=== PATIENT | female | born 1945 | race Caucasian/White ===

== ENCOUNTER 2021-10-13 12:02 | Emergency (ER) | payer MEDICARE, OTHER, SELFPAY ==
[2021-10-13] VITALS (87 sets, daily range): BP systolic 120–135; BP diastolic 56–88; PULSE 71–96; RESP 13–24; TEMP 36.1–36.6; O2SAT 95–99
--- NOTE | 2021-10-13 13:15 | DI.CT_ITS ---
Exam(s) CT ABDOMEN PELVIS W EXAM: CT ABDOMEN PELVIS W CLINICAL HISTORY: abd pain with g-tube feedings. TECHNIQUE: Imaging Protocol: Axial computed tomography images with coronal and sagittal reformatted images were created and reviewed CONTRAST MATERIAL: Intravenous: Omnipaque 65cc Oral: None COMPARISON: No exams were available for comparison FINDINGS: VISUALIZED LUNG BASES: Mild infiltrate noted both lung bases and small bilateral pleural effusions. ABDOMEN: There is ascites evident. G tube in satisfactory position. However, there is gaseous distension col on evident. No free air no small bowel obstruction. LIVER: There are no focal hepatic lesions evident . GALLBLADDER/BILIARY: Prominent gallstones are noted in the gallbladder neck. Gallbladder is distende d above this level and wall is thickened. CBD is not dilated. PANCREAS: No evidence of pancreatic mass nor dilatation of the pancreatic duct. SPLEEN: Spleen is not enlarged. No obvious intrasplenic lesions. Splenic and portal veins are paten t. ADRENALS: There are no significant adrenal masses. KIDNEYS:No cysts evident. No solid renal masses. No calculi nor hydronephrosis.. ABDOMINAL AORTA: The abdominal aorta is heavily calcified but not enlarged. There is no para-aortic adenopathy. LYMPH NODES:There is no retroperitoneal nor paraaortic adenopathy. ABDOMINAL WALL: No evidence of significant anterior abdominal wall nor inguinal hernia. PELVIS: GI: Appendix cannot be identified.Colon is distended fluid. Average diameter 5-6 cm.Sigmoid appears decompressed. There is a suggestion of a transition point in the rectosigmoid. LYMPH NODES: There is no intrapelvic nor inguinal adenopathy. REPRODUCTIVE: Uterus is atrophic or surgically absent. URINARY BLADDER: No calculi nor obvious masses evident OSSEOUS: No significant osseous lesions. No fractures. IMPRESSION: 1. There is a G-tube the stomach. There is significant gaseous distention of entire colon down to th e sigmoid where there appears to be a transition point. Possible sigmoid volvulus. 2. Prominent gallstones are noted in the gallbladder neck and there is gallbladder distention above t his level gallbladder wall thickening. No pericholecystic fluid. 3. Uterus is atrophic or surgically absent. 4. There is ascites evident. Infiltrates noted in the lung bases and small bilateral pleural effusions. Report called by myself to the ER physician RADIATION DOSE DELIVERED: 797.2mGy.cm Total DLP DATA REPOSITORY: All CT scans at this facility are submitted to the National Radiology Data Registry (NRDR) Dose Index Registry (DIR) with the [employer] ([employer]). RADIATION OPTIMIZATION: All CT scans at this facility use at least one of these dose optimization te chniques: automated exposure control; mA and/or kV adjustment per patient size (includes targeted exa ms where dose is matched to clinical indication); or iterative reconstruction.
--- NOTE | 2021-10-13 13:31 | W.ED.GENAD ---
Discharge Plan Disposition Patient Disposition: [facility] INPATIENT Condition: Serious Discharge Details Clinical Impression: Sigmoid volvulus, Colon distention Primary Care Provider: Daniella King ED Provider: Eric Burris Discharge Data Discharge Date/Time-TO BE ENTERED AT DEPARTURE: 10/13/21 17:57 Medical Decision Making Eliana Hodges is a 76-year-old woman with a history of gastric cancer currently being treated with radiation presenting to emergency department with abdominal pain. Patient reports that she has been receiving radiation for gastric cancer. 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 Patient reports that she developed difficulty swallowing and holding food down and was admitted for the department recently. Patient reports that she was discharged from that admission 1 week ago, and during that admission a G-tube was inserted. Patient reports that she does not take p.o. by mouth any longer. Patient reports that since G-tube was inserted she has been having abdominal bloating, abdominal discomfort with feeding, and has noticed loud rumbling abdominal sounds during feedings. Patient reports that patient received 1 bag from 6 to 9 PM, and then 3 bags from 9 PM until when she wakes in the morning. He reports that she does not seem to have symptoms while the first bag is going in, but symptoms develop overnight. Patient reports that she has also been having watery diarrhea over the past 4 to 5 days which is a change for her as she usually needs to take senna for constipation. She denies any current pain, vomiting, cough, shortness of breath, fever, numbness, weakness, rash. Patient's reports that there are no apparent difficulties with the G-tube itself during feeding. On exam Pt is non-toxic appearing. Mild LLQ tenderness to palpation on abd exam. G-tube site unremarkable. Concern for g-tube issue, bowel obstruction, c. diff, other. Exam/hx at this time not c/w acute aortic process, ACS, PE, sepsis, mesenteric ischemia. Plan for screening labs, CT a/p, IVF hydration, will monitor and reassess. Labs reviewed, WBC 18.18, Hgb 12.1, AG 7.2, Cr 0.7, Mg 2.5. CT shows dilated colon with possible transition point at sigmoid, concern for volvulus. [facility] transfer center contacted, awaiting callback from GI, images sent. Discussed Pt presentation and results with GI, who state no issue with GI tube, no GI intervention recommended at this time. Plan to discuss possible volvulus with surgery. [facility] transfer center contacted, awaiting callback from surgery. Pt signed out to Dr. Eric Burris at time of shift change with surgery consult, dispo pending. Medical Records Medical records reviewed: Yes I reviewed the patient's medical records. Imaging Data Radiologic Study: Radiologist's impression: EXAM: ? CT ABDOMEN ? PELVIS W CLINICAL HISTORY: ? abd pain with g-tube feedings. ? TECHNIQUE:? Imaging Protocol: Axial computed tomography images with coronal and sagittal reformatted images were created and reviewed CONTRAST MATERIAL:? Intravenous: Omnipaque 65cc Oral: None COMPARISON:? No exams were available for comparison FINDINGS: VISUALIZED LUNG BASES: Mild infiltrate noted both lung bases and small bilateral pleural effusions.? ABDOMEN: There is ascites evident.? G tube in satisfactory position.? However, there is gaseous distension colon evident.? No free air no small bowel obstruction. LIVER: There are no focal hepatic lesions evident .? GALLBLADDER/BILIARY: Prominent gallstones are noted in the gallbladder neck.? Gallbladder is distended above this level and wall is thickened.? CBD is not dilated. PANCREAS: No evidence of pancreatic mass nor dilatation of the pancreatic duct.? SPLEEN: Spleen is not enlarged.? No obvious intrasplenic lesions.? Splenic and portal veins are patent. ADRENALS: There are no significant adrenal masses. KIDNEYS:No cysts evident.? No solid renal masses.? No calculi nor hydronephrosis.. ABDOMINAL AORTA: The abdominal aorta is heavily calcified but not enlarged.? There is no para-aortic adenopathy. LYMPH NODES:There is no retroperitoneal nor paraaortic adenopathy. ABDOMINAL WALL: No evidence of significant anterior abdominal wall nor inguinal hernia. PELVIS:? GI: Appendix cannot be identified.Colon is distended fluid.? Average diameter 5-6 cm.Sigmoid appears decompressed.? There is a suggestion of a transition point in the rectosigmoid. LYMPH NODES: There is no intrapelvic nor inguinal adenopathy. REPRODUCTIVE: Uterus is atrophic or surgically absent. URINARY BLADDER: No calculi nor obvious masses evident OSSEOUS: No significant osseous lesions. No fractures. IMPRESSION: 1. There is a G-tube the stomach.? There is significant gaseous distention of entire colon down to the sigmoid where there appears to be a transition point.? Possible sigmoid volvulus. 2. Prominent gallstones are noted in the gallbladder neck and there is gallbladder distention above this level gallbladder wall thickening.? No pericholecystic fluid. 3. Uterus is atrophic or surgically absent. 4. There is ascites evident. Infiltrates noted in the lung bases and small bilateral pleural effusions. Lab Data Lab results reviewed: Yes I reviewed the patient's lab results. Labs: Laboratory Tests Range/Units 10/13/21 10/13/21 10/13/21 13:34 13:34 13:34 WBC (4.4-10.8) 10^3/uL RBC (3.93-5.22) 10^6/uL Hgb (11.2-15.7) g/dL Hct (36.0-46.0) % MCV (80-95) fL MCH (27.0-33.0) pg MCHC (32.0-36.0) % RDW (11.7-14.6) % Plt Count (130-400) 10^3/uL MPV (8.0-11.0) fL Immature Gran % Neutrophils % Lymphocytes % Monocytes % Eosinophils % Basophils % Nucleated RBC % (0.0-0.3) % Absolute Neutrophils (1.2-6.7) 10^3/uL Absolute Lymphocytes (1.2-3.4) 10^3/uL Absolute Monocytes (0.1-0.8) 10^3/uL Absolute Eosinophils (0.0-0.7) 10^3/uL Absolute Basophils (0.0-0.2) 10^3/uL Sodium (136-145) mmol/L Potassium (3.5-5.1) mmol/L Chloride (98-107) mmol/L Carbon Dioxide (21.0-32.0) mmol/L Anion Gap (3-11) mmol/L BUN (7-18) mg/dL Creatinine (0.55-1.02) mg/dL Estimated GFR/1.73 m2 (mL/min/1.73m2) Glucose (74-106) mg/dL Calcium (8.5-10.1) mg/dL Magnesium (1.8-2.4) mg/dL Total Bilirubin (0.2-1.0) mg/dL AST (15-37) U/L ALT (14-59) U/L Alkaline Phosphatase (46-116) U/L Total Protein (6.4-8.2) g/dL Albumin (3.4-5.0) g/dL Lipase (73-393) U/L Urine Color Cancelled Urine Clarity Cancelled Urine pH Cancelled Ur Specific [place] Cancelled Urine Protein Cancelled Urine Ketones Cancelled Urine Blood Cancelled Urine Nitrite Cancelled Urine Bilirubin Cancelled Urine Urobilinogen Cancelled Ur Leukocyte Esterase Cancelled Urine Glucose Cancelled Stool Campylobacter PCR Cancelled Stl C.difficile Tox PCR Cancelled Stool Salmonella PCR Cancelled Stool Shigella PCR Cancelled Shiga Toxin (PCR) Cancelled Range/Units 10/13/21 10/13/21 13:57 13:57 WBC (4.4-10.8) 10^3/uL 18.18 H RBC (3.93-5.22) 10^6/uL 4.03 Hgb (11.2-15.7) g/dL 12.1 Hct (36.0-46.0) % 36.9 MCV (80-95) fL 92 MCH (27.0-33.0) pg 30.0 MCHC (32.0-36.0) % 32.8 RDW (11.7-14.6) % 14.6 Plt Count (130-400) 10^3/uL 400 MPV (8.0-11.0) fL 9.7 Immature Gran % 1.0 Neutrophils % 89.9 Lymphocytes % 3.4 Monocytes % 5.3 Eosinophils % 0.1 Basophils % 0.3 Nucleated RBC % (0.0-0.3) % 0.0 Absolute Neutrophils (1.2-6.7) 10^3/uL 16.34 H Absolute Lymphocytes (1.2-3.4) 10^3/uL 0.62 L Absolute Monocytes (0.1-0.8) 10^3/uL 0.96 H Absolute Eosinophils (0.0-0.7) 10^3/uL 0.02 Absolute Basophils (0.0-0.2) 10^3/uL 0.05 Sodium (136-145) mmol/L 138 Potassium (3.5-5.1) mmol/L 3.6 Chloride (98-107) mmol/L 98 Carbon Dioxide (21.0-32.0) mmol/L 32.8 H Anion Gap (3-11) mmol/L 7.2 BUN (7-18) mg/dL 26 H Creatinine (0.55-1.02) mg/dL 0.7 Estimated GFR/1.73 m2 (mL/min/1.73m2) >= 60.00 Glucose (74-106) mg/dL 153 H Calcium (8.5-10.1) mg/dL 8.4 L Magnesium (1.8-2.4) mg/dL 2.5 H Total Bilirubin (0.2-1.0) mg/dL 0.6 AST (15-37) U/L 30 ALT (14-59) U/L 37 Alkaline Phosphatase (46-116) U/L 160 H Total Protein (6.4-8.2) g/dL 5.6 L Albumin (3.4-5.0) g/dL 2.6 L Lipase (73-393) U/L 74 Urine Color Urine Clarity Urine pH Ur Specific [place] Urine Protein Urine Ketones Urine Blood Urine Nitrite Urine Bilirubin Urine Urobilinogen Ur Leukocyte Esterase Urine Glucose Stool Campylobacter PCR Stl C.difficile Tox PCR Stool Salmonella PCR Stool Shigella PCR Shiga Toxin (PCR) HPI General Mode of arrival: wheelchair. Date/Time Provider Initiated Documentation: 10/13/21 12:03. Limitations to Documentation: no limitations. Information obtained by: patient, family, RN notes reviewed and old records reviewed. HPI Narrative: Eliana Hodges is a 76-year-old woman with a history of gastric cancer currently being treated with radiation presenting to emergency department with abdominal pain. Patient reports that she has been receiving radiation for gastric cancer. 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 Patient reports that she developed difficulty swallowing and holding food down and was admitted to [facility] recently. Patient reports that she was discharged from that admission 1 week ago, and during that admission a G-tube was inserted. Patient reports that she does not take p.o. by mouth any longer. Patient reports that since G-tube was inserted she has been having abdominal bloating, abdominal discomfort with feeding, and has noticed loud rumbling abdominal sounds during feedings. Patient reports that she receives 1 bag from 6 to 9 PM, and then 3 bags from 9 PM until when she wakes in the morning. She reports that she does not seem to have symptoms while the first bag is going in, but symptoms develop overnight. Patient reports that she has also been having watery diarrhea over the past 4 to 5 days which is a change for her as she usually needs to take senna for constipation. She denies any current pain, vomiting, cough, shortness of breath, fever, numbness, weakness, rash. Patient's reports that there are no apparent difficulties with the G-tube itself during feeding. General Stated Complaint: Abd Prob ARUN: 3 Review of Systems Narrative: Constitutional: denies fevers Eyes: denies eye pain ENT: denies ear pain, dental pain, sore throat Cardiovascular: denies chest pain, edema Respiratory: denies SOB, cough GI: denies vomiting, melena, hematochezia, reports abdominal pain as per HPI, diarrhea : denies flank pain MSK: denies back pain, neck pain, arthralgias, myalgias Skin: denies rash Neuro: denies headaches, numbness, weakness PFSH All Active Problems (Updated 10/13/21 @ 17:02 by Eric Burris MD) Sigmoid volvulus (Acute) Colon distention (Acute) Social History Smoking/Tobacco Use Status: Never Smoking risk assessment performed?: Yes Alcohol Intake: never Drug use: Never Substance use type: does not use Do you feel safe at home: Yes Do you feel safe in your relationship?: Yes Exam Narrative Exam Narrative: Constitutional: well and [id number], pleasant, conversing normally HENT: head atraumatic/normocephalic/normal inspection, mucous membranes moist Eyes: conjunctiva normal, sclera normal, pupils 3mm b/l Neck: no stridor, normal ROM, trachea midline Resp: normal work of breathing Cardio: normal rate, normal rhythm GI: abdomen soft, mildly distended, G-tube in place with insertion site clean/dry/intact, mild tenderness palpation left lower quadrant, no rebound, no guarding Skin: warm, dry, normal color, no rash Neuro: alert, not altered, grossly non-focal, normal tone Ext: no edema Psych: normal mood, normal affect, normal behavior Course Vital Signs Vital signs: Vital Signs Temperature 36.6 C 10/13/21 12:18 Pulse 96 H 10/13/21 12:18 Respiratory Rate 18 10/13/21 12:18 Blood Pressure 121/63 10/13/21 12:18 Pulse Oximetry 95 10/13/21 12:18 Temperature 36.1 C L 10/13/21 13:15 Temperature Source Tympanic 10/13/21 13:15 Pulse 89 10/13/21 13:15 Respiratory Rate 21 10/13/21 13:15 Blood Pressure 133/57 L 10/13/21 13:15 Blood Pressure Position Sitting 10/13/21 12:18 Pulse Oximetry 97 10/13/21 13:15 Oxygen Delivery Method Room Air 10/13/21 12:18 Oxygen Flow Rate 0 10/13/21 12:18 Pain Level 0 10/13/21 13:15 Sign Out Sign Out Data: Sign Out Comment: Patient signed out to Dr. Eric Burris at time of shift change with surgery consultation, disposition pending Last updated by Shell Burris MD at 10/13/21 16:28
[2021-10-13 14:01] LABS: Abs Immature Grans 0.19 10^3/uL (0.0-0.06); Absolute Basophil Count 0.05 10^3/uL (0.0-0.2); Absolute Eosinophil Count 0.02 10^3/uL (0.0-0.7); Absolute Lymphocyte Count 0.62 10^3/uL (1.2-3.4); Basophils % 0.3; Eosinophils % 0.1; HCT 36.9 % (36.0-46.0); HGB 12.1 g/dL (11.2-15.7); Lymphocytes % 3.4; MCHC 32.8 % (32.0-36.0); MCV 92 fL (80-95); MPV 9.7 fL (8.0-11.0); Monocytes % 5.3; Neutrophils % 89.9; Platelet Count 400 10^3/uL (130-400); RBC 4.03 10^6/uL (3.93-5.22); RDW 14.6 % (11.7-14.6); RDW-SD 48.1 fL; WBC 18.18 10^3/uL (4.4-10.8)
[2021-10-13 14:02] LABS: Absolute Monocyte Count 0.96 10^3/uL (0.1-0.8); Absolute Neutrophil Count 16.34 10^3/uL (1.2-6.7)
[2021-10-13 14:34] LABS: ALT 37 U/L (14-59); AST 30 U/L (15-37); Albumin 2.6 g/dL (3.4-5.0); Alkaline Phosphatase 160 U/L (46-116); Anion Gap 7.2 mmol/L (3-11); BUN 26 mg/dL (7-18); Bilirubin, Total 0.6 mg/dL (0.2-1.0); CO2 32.8 mmol/L (21.0-32.0); CREATININE 0.7 mg/dL (0.55-1.02); Calcium 8.4 mg/dL (8.5-10.1); Chloride 98 mmol/L (98-107); Glucose 153 mg/dL (74-106); Lipase 74 U/L (73-393); Magnesium 2.5 mg/dL (1.8-2.4); Potassium 3.6 mmol/L (3.5-5.1); Sodium 138 mmol/L (136-145); Total Protein 5.6 g/dL (6.4-8.2)
[2021-10-13] MEDS: Omnipaque 350 MG/ML 100 ML BTL 65 ML IJ (15:03)
[2021-10-13] MEDS: Normal Saline 500 ML IV (16:42)
--- NOTE | 2021-10-13 16:57 | W.EDPROG ---
Date of service: 10/13/21 Time of Service: 16:57 Medical Decision Making I spoke with Dr. Hernandez at [facility] [place] and discussed ED presentation and course including diagnostics available and pending, he agrees with transfer and recommends ED to ED patient transfer. I also spoke with Dr. Onofre in the emergency department and discussed ED presentation course, he will accept the patient. Concern for sigmoid volvulus versus C. difficile colitis. C. difficile testing not resulted as no stool specimen provided yet. Lab Data Lab results reviewed: Yes I reviewed the patient's lab results. Labs: Laboratory Tests Range/Units 10/13/21 10/13/21 13:57 13:57 WBC (4.4-10.8) 10^3/uL 18.18 H RBC (3.93-5.22) 10^6/uL 4.03 Hgb (11.2-15.7) g/dL 12.1 Hct (36.0-46.0) % 36.9 MCV (80-95) fL 92 MCH (27.0-33.0) pg 30.0 MCHC (32.0-36.0) % 32.8 RDW (11.7-14.6) % 14.6 Plt Count (130-400) 10^3/uL 400 MPV (8.0-11.0) fL 9.7 Immature Gran % 1.0 Neutrophils % 89.9 Lymphocytes % 3.4 Monocytes % 5.3 Eosinophils % 0.1 Basophils % 0.3 Nucleated RBC % (0.0-0.3) % 0.0 Absolute Neutrophils (1.2-6.7) 10^3/uL 16.34 H Absolute Lymphocytes (1.2-3.4) 10^3/uL 0.62 L Absolute Monocytes (0.1-0.8) 10^3/uL 0.96 H Absolute Eosinophils (0.0-0.7) 10^3/uL 0.02 Absolute Basophils (0.0-0.2) 10^3/uL 0.05 Sodium (136-145) mmol/L 138 Potassium (3.5-5.1) mmol/L 3.6 Chloride (98-107) mmol/L 98 Carbon Dioxide (21.0-32.0) mmol/L 32.8 H Anion Gap (3-11) mmol/L 7.2 BUN (7-18) mg/dL 26 H Creatinine (0.55-1.02) mg/dL 0.7 Estimated GFR/1.73 m2 (mL/min/1.73m2) >= 60.00 Glucose (74-106) mg/dL 153 H Calcium (8.5-10.1) mg/dL 8.4 L Magnesium (1.8-2.4) mg/dL 2.5 H Total Bilirubin (0.2-1.0) mg/dL 0.6 AST (15-37) U/L 30 ALT (14-59) U/L 37 Alkaline Phosphatase (46-116) U/L 160 H Total Protein (6.4-8.2) g/dL 5.6 L Albumin (3.4-5.0) g/dL 2.6 L Lipase (73-393) U/L 74 Sign Out Sign Out Data: Sign Out Comment: Patient signed out to Dr. Eric Burris at time of shift change with surgery consultation, disposition pending Last updated by Shell Burris MD at 10/13/21 16:28 Discharge Plan Disposition Patient Disposition: [facility] INPATIENT Condition: Serious Discharge Details Clinical Impression: Sigmoid volvulus, Colon distention Primary Care Provider: Daniella King ED Provider: Eric Burris Discharge Data Discharge Date/Time-TO BE ENTERED AT DEPARTURE: 10/13/21 17:57
== END 2021-10-13 17:57 | disposition short-term general hospital (02) ==
PROVIDERS: Student in an Organized Health Care Education/Training Program; Emergency Provider Student in an Organized Health Care Education/Training Program; PCP Nurse Practitioner Family
DX: K56.2 Volvulus (principal); K63.89 Other specified diseases of intestine; C16.9 Malignant neoplasm of stomach, unspecified; Z92.3 Personal history of irradiation; Z93.1 Gastrostomy status
CPT/HCPCS: 80053; 83690; 87493; 87505; 96360; 99285; 74177; 81003; 83735; 85025; 99284; J3490